=== PATIENT | female | born 2000 ===

== ENCOUNTER 2024-06-06 20:14 | Emergency (ER) | payer SELFPAY ==
[2024-06-06 20:28] VITALS: BP 129/81; BMI 38.4
--- NOTE | 2024-06-06 20:43 | EDRN ---
[facility] answering service called at this time [facility].
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
[2024-06-06] MEDS: TYLENOL 1000 MG PO (21:31)
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
[2024-06-06 22:19] LABS: HCG, Urine Qualitative Screen Negative
[2024-06-06] MEDS: FLAGYL 500 MG PO (23:38)
[2024-06-06] MEDS: PLAN B ONE-STEP, NEXT CHOICE 1 TABLET PO (23:38)
[2024-06-06] MEDS: ROCEPHIN 500 MG IM (23:39)
[2024-06-06] MEDS: VIBRAMYCIN 100 MG PO (23:39)
[2024-06-06 23:48] VITALS: BP 124/69
== END 2024-06-07 00:01 | disposition home or self-care (01) ==
LOC: EMR 20:14
PROVIDERS: Clinical Nurse Specialist Family Health; EMERGENCY PHYSICIAN Emergency Medicine
DX: T74.21XA Adult sexual abuse, confirmed, initial encounter (principal); T71.9XXA Asphyxiation due to unspecified cause, initial encounter; S21.151A Open bite of right front wall of thorax without penetration into thoracic cavity, initial encounter; Y04.1XXA Assault by human bite, initial encounter
CPT/HCPCS: 99285; 96372; 81025